=== PATIENT | female | born 1945 | race Caucasian/White ===

== ENCOUNTER 2017-07-24 20:23 | Inpatient (IN) | payer OTHER ==
[~2017-07-24] VITALS: Ht 157.5 cm; Wt 77.4 kg
[~2017-07-24 20:23] MED LIST: ATE50T PO; ATOR10TA52 PO; BENA20TA14 PO; FENO1TAB42 PO; FURO40TA PO; GABA-339 PO; INSLANTI SC; INSUINJ48 SC; SIMV-13 PO
[2017-07-24] MEDS ORDERED: SODIUM CHLORIDE 0.9% 500 ML IV ONE (22:30)
[2017-07-24 22:35] LABS: INR 1.09 (0.9-1.15); Partial Thromboplastin Time 27.9 sec (23.78-33.04); Prothrombin Time 11.6 sec (9.27-12.13)
[2017-07-24 22:37] LABS: Alcohol, Urine < 3.0 mg/dL (0-5); Amphetamine Screen, Urine NEGATIVE (NEGATIVE); Barbiturate Scree,Urine NEGATIVE (NEGATIVE); Benzodiazephine Screen, Urine POSITIVE (NEGATIVE); Cannabinoid Screen, Urine NEGATIVE (NEGATIVE); Cocaine Screen, Urine NEGATIVE (NEGATIVE); Opiate Scree,Urine NEGATIVE (NEGATIVE); Phencyclidine Screen, Urine NEGATIVE (NEGATIVE)
[2017-07-24 22:38] LABS: Alanine Aminotransferase 23 U/L (13-56); Albumin 2.8 g/dL (3.4-5.0); Anion Gap 11 (5-15); Aspartate Aminotransferase 25 U/L (15-37); BUN/Creatinine Ratio 21.9; Blood Urea Nitrogen 34 mg/dL (7-18); Carbon Dioxide 24 mmol/L (21-32); Chloride 104 mmol/L (98-107); GFR African American 43 mL/min; GFR Non-African American 35 mL/min; Glucose 91 mg/dL (74-106); Magnesium 2.5 mg/dL (1.6-2.6); Potassium 4.2 mmol/L (3.5-5.1); Sodium 139 mmol/L (136-145)
[2017-07-24 22:44] LABS: Alkaline Phosphatase 84 U/L (45-117); Bilirubin, Total 0.3 mg/dL (0.2-1.0); Total Protein 7.3 g/dL (6.4-8.2); Urine WBC None Seen /hpf (0 - 5)
[2017-07-24 22:55] LABS: Urine Bacteria NONE SEEN /hpf (None Seen); Urine Blood Negative /uL (Negative); Urine Mucus FEW (None Seen); Urine Specific Gravity 1.009 (1.001-1.035)
[2017-07-24 22:55] LABS: Basophils # (auto) 0.1 uL; Basophils % (auto) 0.8 % (0.0-2.0); Eosinophils # (auto) 0.1 uL; Eosinophils % (auto) 1.8 % (0.0-7.0); Hemoglobin 10.6 g/dL (12.2-16.2); Lymphocytes # (auto) 1.7 uL; Mean Corpuscular Hemoglobin 29.8 pg (28.0-32.0); Mean Corpuscular Hgb Conc. 30.3 g/dL (32.0-36.0); Mean Corpuscular Volume 98.4 fL (80.0-100.0); Monocytes # (auto) 0.6 uL; Monocytes % (auto) 7.6 % (0.0-12.0); Neutrophils % (auto) 66.8 % (37.0-80.0); Nucleated Red Blood Cells % 0.3 %; Platelet Count (auto) 222 10^3/uL (140-450); Red Blood Cells 3.56 10^6/uL (4.0-5.20); Red Cell Distribution Width 15.6 % (11.8-14.3); White Blood Cell 7.6 10^3/uL (4.4-10.8)
[2017-07-24 23:50] LABS: Blood Alcohol < 3.0 mg/dL (0-5)
[2017-07-24 23:52] LABS: Creatine Kinase IFCC 67 U/L (26-192)
[2017-07-24 23:58] LABS: CRP High Sensitivity 0.641 mg/dL (< 0.3)
[2017-07-25] MEDS ORDERED: PIPERACILLIN-TAZOB 3.375GM 100 ML IV ONE (02:30)
[2017-07-25] MEDS ORDERED: HYDROcodone-ACET 5/325MG TAB PO PRN (03:30)
[2017-07-25] MEDS ORDERED: DEXTROSE (50%) 50ML SYRG IV PRN (03:30)
[2017-07-25] MEDS ORDERED: ACETAMINOPHEN 500 MG TAB PO PRN (03:30)
[2017-07-25] MEDS ORDERED: ONDANSETRON HCL 4 MG/2 ML VIAL IV PRN (03:30)
[2017-07-25] MEDS ORDERED: ALBUMIN 5% 250 ML IV ONE (04:00)
[2017-07-25] MEDS: SODIUM CHLORIDE 0.9% 1,000 ML IV SCH ×2 (04:10→20:08)
[2017-07-25] MEDS: ACCU-CHEK COMFORT CURVE STRIP VI SCH ×4 (06:44→23:34)
[2017-07-25] MEDS: InsuLIN REG 1unit/0.01ml Soln (100units/ml) SC SCH ×4 (06:44→23:34)
[2017-07-25 07:13] LABS: Basophils # (auto) 0 uL; Basophils % (auto) 0.6 % (0.0-2.0); Eosinophils # (auto) 0.1 uL; Eosinophils % (auto) 1.1 % (0.0-7.0); Hematocrit 31.8 % (36.0-46.0); Hemoglobin 10.6 g/dL (12.2-16.2); Lymphocytes # (auto) 1.1 uL; Lymphocytes % (auto) 17.5 % (10.0-50.0); Mean Corpuscular Hemoglobin 30.7 pg (28.0-32.0); Mean Corpuscular Hgb Conc. 33.3 g/dL (32.0-36.0); Monocytes # (auto) 0.4 uL; Monocytes % (auto) 7.2 % (0.0-12.0); Neutrophils # (auto) 4.6 uL; Neutrophils % (auto) 73.6 % (37.0-80.0); Platelet Count (auto) 241 10^3/uL (140-450); Red Blood Cells 3.46 10^6/uL (4.0-5.20); Red Cell Distribution Width 14.7 % (11.8-14.3); White Blood Cell 6.2 10^3/uL (4.4-10.8)
[2017-07-25 07:27] LABS: BUN/Creatinine Ratio 22.7; Potassium 4.1 mmol/L (3.5-5.1)
[2017-07-25 09:00] VITALS: BP 110/59
[2017-07-25] MEDS ORDERED: SODIUM CHLORIDE 0.9% 500 ML IV ONE (09:00)
[2017-07-25] MEDS: AZITHROMYCIN 500MG/ 250ML 250 ML IV SCH (09:44)
[2017-07-25] MEDS: cefTRIAXone 1GM/10ml IVPUSH 10 ML IV SCH (09:45)
[2017-07-25 13:00] VITALS: BP 132/65
[2017-07-25 22:00] VITALS: BP 111/54
[2017-07-26] MEDS: HALOPERIDOL LACTATE 5 MG/ML INJ VIAL IM PRN ×2 (02:20→13:02)
[2017-07-26 05:00] VITALS: BP 128/70
[2017-07-26] MEDS: InsuLIN REG 1unit/0.01ml Soln (100units/ml) SC SCH ×3 (05:50→17:49)
[2017-07-26] MEDS: ACCU-CHEK COMFORT CURVE STRIP VI SCH ×3 (05:50→17:49)
[2017-07-26 09:00] VITALS: BP 114/63
[2017-07-26] MEDS: AZITHROMYCIN 500MG/ 250ML 250 ML IV SCH (09:50)
[2017-07-26] MEDS: cefTRIAXone 1GM/10ml IVPUSH 10 ML IV SCH (09:50)
[2017-07-26 13:00] VITALS: BP 143/64
[2017-07-26 13:09] VITALS: BP 114/64
[2017-07-26] MEDS: SODIUM CHLORIDE 0.9% 1,000 ML IV SCH (13:20)
[2017-07-26 17:00] VITALS: BP 149/84
== END 2017-07-26 19:37 | disposition hospice, inpatient (51) | DRG 917 ==
LOC: EDBD 20:23 → ER 20:33 → TELE 20:34 → TELE-WESTW 07-25 07:48
PROVIDERS: ADMIT Nurse Practitioner Family; ATTEND Family Medicine
DX: T42.4X1A Poisoning by benzodiazepines, accidental (unintentional), initial encounter (principal); J18.9 Pneumonia, unspecified organism; E43 Unspecified severe protein-calorie malnutrition; I13.0 Hypertensive heart and chronic kidney disease with heart failure and stage 1 through stage 4 chronic kidney disease, or unspecified chronic kidney disease; D64.9 Anemia, unspecified; E11.22 Type 2 diabetes mellitus with diabetic chronic kidney disease; E11.649 Type 2 diabetes mellitus with hypoglycemia without coma; F03.90 Unspecified dementia, unspecified severity, without behavioral disturbance, psychotic disturbance, mood disturbance, and anxiety; I50.9 Heart failure, unspecified; K08.9 Disorder of teeth and supporting structures, unspecified; N18.9 Chronic kidney disease, unspecified; W06.XXXA Fall from bed, initial encounter; Z79.4 Long term (current) use of insulin; Z83.3 Family history of diabetes mellitus; Z95.0 Presence of cardiac pacemaker; Z79.899 Other long term (current) drug therapy; Y92.89 Other specified places as the place of occurrence of the external cause; Z88.8 Allergy status to other drugs, medicaments and biological substances; Z68.31 Body mass index [BMI] 31.0-31.9, adult
CPT/HCPCS: 36415; 36600; 51702; 70450; 70486; 71045; 80048; 80053; 80307; 80320; 81001; 82550; 82805; 82962; 83036; 83605; 83735; 83880; 84484; 85025; 85610; 85730; 86141; 87040; 87081; 87086; 93005; 93306; 94761; 96361; 96365; 96367; 96375; 97116; 97163; 97530; J1815; J2543